=== PATIENT | female | born 1985 | race Caucasian/White ===

== ENCOUNTER 2018-11-12 08:15 | Emergency (ER) | payer OTHER ==
[~2018-11-12] VITALS: Ht 172.7 cm; Wt 85.3 kg
[2018-11-12 08:38] VITALS: BP 130/70; Ht 172.7 cm; Wt 85.3 kg
== END 2018-11-12 10:29 | disposition home or self-care (01) ==
LOC: ED 08:15
DX: N39.0 Urinary tract infection, site not specified (principal); R31.9 Hematuria, unspecified; Z98.890 Other specified postprocedural states
CPT/HCPCS: 82962

== ENCOUNTER 2019-03-17 17:00 | Emergency (ER) | payer OTHER ==
[~2019-03-17] VITALS: Ht 172.7 cm; Wt 81.6 kg
[2019-03-17 17:30] VITALS: BP 126/65; Ht 172.7 cm; Wt 81.6 kg
== END 2019-03-17 17:53 | disposition home or self-care (01) ==
LOC: ED 17:00
DX: J10.1 Influenza due to other identified influenza virus with other respiratory manifestations (principal); Z98.890 Other specified postprocedural states
CPT/HCPCS: 87804

== ENCOUNTER 2019-12-27 10:43 | Emergency (ER) | payer OTHER ==
[~2019-12-27] VITALS: Ht 172.7 cm; Wt 82.1 kg
[2019-12-27 11:05] VITALS: Ht 172.7 cm; Wt 82.1 kg
[2019-12-27 11:48] VITALS: BP 135/62
== END 2019-12-27 11:48 | disposition home or self-care (01) ==
LOC: ED 10:43
DX: N64.4 Mastodynia (principal); Z98.84 Bariatric surgery status; Z98.51 Tubal ligation status